=== PATIENT | female | born 1955 | race African-American/Black ===

== ENCOUNTER 2018-06-24 03:30 | Emergency (ER) | payer OTHER, MEDICAID ==
[~2018-06-24] VITALS: Ht 162.6 cm; Wt 54.3 kg
[2018-06-24] MEDS ORDERED: DOCUSATE SODIUM 100MG CAPSULE PO SCH (04:00)
[2018-06-24 04:23] VITALS: BP 138/93
== END 2018-06-24 04:44 | disposition home or self-care (01) ==
LOC: ER 03:30
DX: K59.09 Other constipation (principal); I50.9 Heart failure, unspecified; E11.9 Type 2 diabetes mellitus without complications; I10 Essential (primary) hypertension; Z86.73 Personal history of transient ischemic attack (TIA), and cerebral infarction without residual deficits; Z99.81 Dependence on supplemental oxygen; Z88.6 Allergy status to analgesic agent
CPT/HCPCS: 99283